=== PATIENT | male | born 1950 | race Caucasian/White ===

== ENCOUNTER 2016-06-28 23:03 | Emergency (ER) | payer MEDICARE, MEDICAID ==
--- NOTE | 2016-07-02 00:57 | ER ---
ADMIT: 06/28/2016 RM/LOC: ER [facility] MR#: [id number] [address] [facility] [id number] TERELL ERNANDEZ [address] [place] [address] Emergency Room Report SEX: M AGE: 66 : 1950 DATE: 06/28/2016 The patient is a 66-year-old male, visiting from out of town, stumbled in bleachers going to [place], twisted his left knee and ankle. X-ray is negative. REBECA wrap to knee and ankle, walker. Follow up with local physician as needed. Porter Bhatia MD/ judith JOB #: [id number] CC: Porter Bhatia MD, Attending Physician Sergio Samayoa MD, Family Physician Sergio Samayoa MD
== END 2016-06-29 01:55 | disposition home or self-care (01) ==
LOC: ER 23:03
DX: S83.92XA Sprain of unspecified site of left knee, initial encounter (principal); S93.402A Sprain of unspecified ligament of left ankle, initial encounter; I10 Essential (primary) hypertension; E11.9 Type 2 diabetes mellitus without complications; X50.1XXA Overexertion from prolonged static or awkward postures, initial encounter